=== PATIENT | male | born 1985 | race Caucasian/White ===

== ENCOUNTER 2016-04-14 15:37 | Emergency (ER) | payer SELFPAY ==
[~2016-04-14] VITALS: Ht 182.8 cm; Wt 97.5 kg
== END 2016-04-14 16:01 | disposition home or self-care (01) ==
LOC: ED 15:37
DX: L72.8 Other follicular cysts of the skin and subcutaneous tissue (principal); F17.200 Nicotine dependence, unspecified, uncomplicated; Z88.0 Allergy status to penicillin

== ENCOUNTER 2019-09-11 18:22 | Emergency (ER) | payer BC ==
[~2019-09-11] VITALS: Ht 182.8 cm; Wt 97.5 kg
[2019-09-11] MEDS ORDERED: NORCO 5-325 TA1 EACH PO (18:46)
[2019-09-11] MEDS ORDERED: CLINDAMYCIN HC300 MG PO (18:46)
== END 2019-09-11 19:20 | disposition home or self-care (01) ==
LOC: ED 18:22
DX: K04.7 Periapical abscess without sinus (principal); Z88.0 Allergy status to penicillin